=== PATIENT | male | born 1965 | race Two or more races ===

== ENCOUNTER 2017-03-26 07:02 | Day surgery (SDC) | payer OTHER ==
[~2017-03-26 07:02] MED LIST: HYDROmorphone 2 MG/ML VIAL IV; LIDOCAINE 1% PF 2 ML VIAL. ID; MORPHINE SULFATE 2 MG/ML DISP.SYRIN. IV; ONDANSETRON PF 4 MG/2 ML VIAL. IV; PROCHLORPERAZINE 10 MG/2 ML VIAL. IV; fentaNYL PF VIAL 100 MCG/2 ML VIAL IV
[2017-03-26] MEDS: IV RINGERS,LACTATED 1000ML 1,000 ML IV (07:41)
[2017-03-26 07:46] LABS: ADD MAN DIFF? NO
[2017-03-26 07:54] LABS: BASO % 0 % (0-3); EOS # 0.2 x10^3/uL (0.0-0.7); EOS % 3 % (0-3); HEMATOCRIT 44.4 % (39.0-53.0); HEMOGLOBIN 14.8 g/dL (13.0-17.5); LYMPH # 2.4 x10^3/uL (1.0-4.8); LYMPH % 32 % (24-48); MEAN CORPUSCULAR HEMOGLOBIN 29 pg (25-35); MEAN CORPUSCULAR HGB CONC 33 g/dL (31-37); MEAN CORPUSCULAR VOLUME 87 fL (79-100); MONO # 0.6 x10^3/uL (0.0-1.1); MONO % 8 % (0-9); NEUT # 4.2 x10^3uL (1.8-7.7); NEUT % 57 % (31-73); PLATELET COUNT 253 x10^3/uL (140-400); RED BLOOD COUNT 5.08 x10^6/uL (4.30-5.70); RED CELL DISTRIBUTION WIDTH 13.2 % (11.5-14.5); WHITE BLOOD COUNT 7.5 x10^3/uL (4.0-11.0)
[2017-03-26 08:01] LABS: ANION GAP 10 (6-14); BLOOD UREA NITROGEN 21 mg/dL (8-26); BUN/CREATININE RATIO 26 (6-20); CALCIUM 8.7 mg/dL (8.5-10.1); CARBON DIOXIDE 28 mmol/L (21-32); CHLORIDE 104 mmol/L (98-107); CREATININE 0.8 mg/dL (0.7-1.3); GFR 102.3; GLUCOSE 112 mg/dL (70-99); POTASSIUM 3.9 mmol/L (3.5-5.1); SODIUM 142 mmol/L (136-145)
[2017-03-26 08:03] LABS: PARTIAL THROMBOPLASTIN TIME 28 SEC (24-38); PROTHROMBIN TIME PATIENT 12.5 SEC (11.7-14.0)
[2017-03-26 08:07] LABS: ALBUMIN 3.8 g/dL (3.4-5.0); ALK PHOS 74 U/L (46-116); ALT (SGPT) 31 U/L (16-63); AST (SGOT) 24 U/L (15-37); TOTAL PROTEIN 7.8 g/dL (6.4-8.2)
[2017-03-26] MEDS ORDERED: BUPIVACAINE MPF 0.5% 30 ML VIAL. (08:34)
[2017-03-26] MEDS ORDERED: MIDAZOLAM HCL/PF 2 MG/2 ML VIAL. (08:59)
[2017-03-26] MEDS ORDERED: ROCURONIUM 50 MG/5 ML VIAL. (09:00)
[2017-03-26] MEDS ORDERED: fentaNYL PF VIAL 250 MCG/5 ML VIAL (09:00)
[2017-03-26] MEDS ORDERED: ONDANSETRON PF 4 MG/2 ML VIAL. (10:26)
[2017-03-26] MEDS ORDERED: SEVOFLURANE 61 TO 120 MINUTES. IH (10:26)
[2017-03-26] MEDS ORDERED: PROPOFOL 20 ML IV (10:26)
[2017-03-26] MEDS ORDERED: DEXAMETHASONE SOD PHOS 20 MG/5 ML VIAL. (10:26)
[2017-03-26] MEDS ORDERED: NEOSTIGMINE METHYLSULFATE 5 MG/5 ML SYRINGE. (10:31)
[2017-03-26] MEDS ORDERED: GLYCOPYRROLATE 1 MG/5 ML VIAL. (10:32)
[2017-03-26] MEDS: BUPIVACAINE-EPI 0.25%-1:200000 50 ML VIAL. (10:49)
[2017-03-26] MEDS: HYDROcodone/APAP 7.5/325MG 1 TAB TABLET PO (11:41)
== END 2017-03-26 12:23 | disposition home or self-care (01) ==
LOC: SURG 07:02
DX: K42.0 Umbilical hernia with obstruction, without gangrene (principal); Z87.39 Personal history of other diseases of the musculoskeletal system and connective tissue; Z98.890 Other specified postprocedural states; Z86.010 Personal history of colon polyps
CPT/HCPCS: 36415; 49587; 80053; 85025; 85610; 85730; A4215; J0690; J1100; J2250; J2405; J2704; J2710; J3010; J3490; J7120